=== PATIENT | female | born 1960 | race Caucasian/White ===

== ENCOUNTER → 2016-12-08 | Outpatient (CLI) | payer OTHER | LOC: CIMAGING 10:54 | DX: Z12.31 Encounter for screening mammogram for malignant neoplasm of breast (principal) | CPT/HCPCS: G0202 ==

== ENCOUNTER 2017-07-18 12:44 | Day surgery (SDC) | payer OTHER ==
[2017-07-18] MEDS ORDERED: MIDAZOLAM 2 MG/2 ML VIAL IVP ONE (13:13)
[2017-07-18] MEDS ORDERED: ATROPINE SULFATE 1 MG/10 ML SYR IVP ONE (13:13)
[2017-07-18] MEDS ORDERED: BENZOCAINE UNIT DOSE SPRAY HURRICAINE MM ONE (13:13)
[2017-07-18] MEDS ORDERED: fentaNYL 100 MCG/2 ML INJ IVP ONE (13:13)
[2017-07-18] MEDS ORDERED: NS 500 ML IV ONE (13:13)
--- NOTE | 2017-07-18 13:31 | CPEKG ---
Heart Rate: 113 RR Interval: 531 QRSD Interval: 90 QT Interval: 400 QTC Interval: 549 QRS Phelps: 79 T Wave Phelps: -53 EKG Severity - ABNORMAL ECG - EKG Impression: ATRIAL FLUTTER, A-RATE 300 EKG Impression: NONSPECIFIC REPOL ABNORMALITY, DIFFUSE LEADS EKG Impression: PROLONGED QT INTERVAL Electronically Signed By: Jody Palomo 18-Jul-2017 19:06:53
[2017-07-18 13:54] LABS: APTT 34.1 SEC (23.0-38.0)
[2017-07-18 14:00] LABS: INR 1.25 (0.83-1.16); PROTIME(PATIENT) 15.9 SEC (12.0-15.0)
[2017-07-18 14:05] LABS: ANION GAP 14 mEq/L (8-16); CALCIUM 9.7 mg/dL (8.5-10.4); CARBON DIOXIDE 21 mEq/l (22-31); CHLORIDE 109 mEq/L (97-110); CREATININE 0.7 mg/dL (0.6-1.0); GLOMERULAR FILTRATION RATE > 60; GLUCOSE 103 mg/dL (70-100); POTASSIUM 4.7 mEq/L (3.5-5.2); SODIUM 144 mEq/L (134-144)
[2017-07-18] MEDS ORDERED: LIDOCAINE 2% 5 ML SDV ONE (14:06)
[2017-07-18] MEDS ORDERED: PROPOFOL 200 MG/20 ML VIAL ONE ×2 (14:06→14:34)
[2017-07-18] MEDS ORDERED: PROPOFOL/EMULSION 500 MG/50 ML BOTTLE IV ONE (14:34)
--- NOTE | 2017-07-18 14:47 | CPEKG ---
Heart Rate: 88 RR Interval: 682 P-R Interval: 156 QRSD Interval: 94 QT Interval: 384 QTC Interval: 465 P New Era: 70 QRS New Era: 76 T Wave New Era: 44 EKG Severity - NORMAL ECG - EKG Impression: SINUS RHYTHM EKG Impression: BORDERLINE PROLONGED QT INTERVAL EKG Impression: COMPARED WITH 07/18/2000 [id number], SINUS RHYTHM HAS REPLACED ATRIAL FLUTTER Electronically Signed By: Jody Palomo 18-Jul-2017 19:06:37
[2017-07-18] MEDS ORDERED: NALOXONE HCL 0.4 MG/ML INJ IVP PRN (15:02)
--- NOTE | 2017-07-18 15:25 | PDANEPAE ---
ANE History of Present Illness 57 F for SHNAIA, Cardioversion ANE Past Medical History - Pulmonary History Hx Sleep Apnea: No ANE Review of Systems Review of Systems: ANE Patient History - Allergies Allergies/Adverse Reactions: No Known Allergies Allergy (Unverified 07/18/17 06:34) - Home Medications Home Medications: Aspirin EC 07/18/17 [Last Taken Unknown] Eliquis 07/18/17 [Last Taken 07/18/17 09:15] Imitrex 50 MG (*) 07/18/17 [Last Taken Unknown] Metoprolol Succinate Xr 07/18/17 [Last Taken 07/18/17 09:15] - Smoking Hx Smoking Status: Never smoked ANE Labs/Vital Signs - Labs Result Diagrams: 07/18/17 13:30 - Vital Signs Height: 177.8 cm Weight: 79.832 kg ANE Physical Exam - Airway Mouth exam: normal dental/mouth exam - ASA Status ASA Status: II ANE Anesthesia Plan Anesthesia Plan: MAC
--- NOTE | 2017-07-18 15:28 | POSTANESTH ---
Post Anesthetic Evaluation Cardiovascular Status: Normal, Stable Respiratory Status: Normal, Stable Level of Consciousness/Mental Status: Can Participate in Eval Pain Control: Adequate, Prn Tx Ordered Complications Possibly Related to Anesthesia: None Noted
[2017-07-18] MEDS ORDERED: LIDOCAINE/PRILOCAINE 1 EACH CRTUBE TP ONE (16:00)
--- NOTE | 2017-07-18 19:01 | GPN ---
[f rep st] PROCEDURE NOTE DATE OF PROCEDURE: 07/18/2017 REPORT TITLE: Cardiology Procedure Note BODY AFTER REPORT TITLE: PROCEDURE PERFORMED: SHANIA guided cardioversion. INDICATION FOR PROCEDURE: New onset atrial flutter. HISTORY OF PRESENT ILLNESS: The patient is a pleasant 57-year-old female with a known history of alyse ral valve repair who was in her usual state of health until last week when she started to notice some mild shortness of breath and fluttering in her chest. She was seen by her primary carding utility tender, Dr. Oneil Newman. ECG done in his office demonstrated atrial flutter with 2:1 block. She was started on m etoprolol and anticoagulated with Eliquis 5 mg p.o. b.i.d. She presents today for SHANIA guided cardiov ersion. She remains in atrial flutter at approximately 125 beats per minute at the time of my preope rative exam. DESCRIPTION OF PROCEDURE: After informed consent was obtained for both SHANIA and cardioversion, consen ts were also obtained from the anesthesiologist for anesthesia with propofol. After time out, a bite block was placed. Propofol was administered and once appropriate level of sed ation was achieved, SHANIA probe was passed without difficulty. SHANIA probe was used to take images of al l cardiac structures. In the setting of a history of mitral valve repair, detailed images of the alyse ral valve were obtained. Detailed images of the left atrium and the left atrial appendage were also obtained. Please see complete SHANIA report for full details. There is no evidence of left atrial thrombus. There is no evidence of left atrial appendage thrombus . SHANIA probe was removed. The patient underwent a single synchronized biphasic shock of 150 joules with return to normal sinus rhythm at approximately 84 beats per minute. The patient tolerated the procedure well. There were no postoperative complications at the time of t his dictation. PLAN: 1. Patient will be discharged home when she is fully recovered. 2. Patient has been instructed that she has to remain on Eliquis 5 mg p.o. b.i.d. without interrupti on for the next 30 days. 3. Patient will remain on metoprolol tartrate 25 mg p.o. b.i.d. 4. Patient is scheduled to follow up with Dr. Barak Newman in the office. /[id number]/MODL
--- NOTE | 2017-07-18 19:14 | ECHO ---
[email or web address] [id number] Main: [phone] Fax: Transesophageal Echocardiography Name: CHANELLE CHARLES MR#: [id number] Study Date: 07/18/2017 Study Time: 02:10 PM Date of : 1960 Age: 57 year(s) Height: ( ) Weight: ( ) BSA: Gender: Female Examination: SHANIA Indication: Atrial Flutter Image Quality: Contrast: Requested by: Barak Newman Heart Rate: Rhythm: BP: / Procedure Staff Tools Administrator: Norma Duncan Physician: Reza Asencio Requesting Provider: SHANIA Exam Details Measurements: Chambers Valvular Assessment AV/MV Valvular Assessment TV/PV Normal Normal Normal Name Value Range Name Value Range Name Value Range Additional Measurements: Findings: Left Ventricle: Normal global systolic LV function. Left Atrial Appendage: No thrombus in left appendage. Mitral Valve: Trivial mitral valve regurgitation. An annuloplasty ring is noted in the mitral valve position. Aortic Valve: The aortic valve is tri-leaflet. l1n (No Signature Object) Patient: CHANELEL CHARLES Study Date: 07/18/2017 Page 1 of 1 02:10 PM [id number]
== END 2017-07-18 17:00 | disposition home or self-care (01) ==
LOC: FCATH 12:44
PROVIDERS: ATTEND Internal Medicine Cardiovascular Disease
PROC: 5A2204Z Restoration of Cardiac Rhythm, Single (ICD-10-PCS; principal; 2017-07-18)
PROC: B245ZZ4 Ultrasonography of Left Heart, Transesophageal (ICD-10-PCS; principal; 2017-07-18)
DX: I48.92 Unspecified atrial flutter (principal); R00.2 Palpitations; I34.1 Nonrheumatic mitral (valve) prolapse; K21.9 Gastro-esophageal reflux disease without esophagitis; E04.2 Nontoxic multinodular goiter; Z79.01 Long term (current) use of anticoagulants
CPT/HCPCS: J2704